=== PATIENT | male | born 1980 | race Hispanic/Latino ===

== ENCOUNTER 2021-10-22 02:41 | Emergency (ER) | payer OTHER ==
[~2021-10-22] VITALS: Ht 165.1 cm; Wt 93.9 kg
[2021-10-22] MEDS ORDERED: CEFAZOLIN SODIUM 1 GM VIAL IM SCH (06:30)
[2021-10-22] MEDS ORDERED: CEFAZOLIN SODIUM 1 GM VIAL ONE (06:35)
[2021-10-22 06:46] VITALS: BP 135/70
[2021-10-22] MEDS ORDERED: NEOMY SULF/BACITRA/POLYMYXIN B 1 EACH PACKET TP ONE (07:41)
[2021-10-22] MEDS ORDERED: IBUP-2070 PO (08:21)
[2021-10-22] MEDS ORDERED: CEPH500B PO (08:21)
== END 2021-10-22 08:45 | disposition home or self-care (01) ==
LOC: EDH 02:41
DX: S61.411A Laceration without foreign body of right hand, initial encounter (principal); R55 Syncope and collapse; X58.XXXA Exposure to other specified factors, initial encounter; Y93.89 Activity, other specified; Y92.89 Other specified places as the place of occurrence of the external cause; Y99.8 Other external cause status
CPT/HCPCS: 12001; 73120; 96372; 99283; J0690